=== PATIENT | female | born 1980 | race Hispanic/Latino ===

== ENCOUNTER 2019-04-19 00:39 | Emergency (ER) | payer SELFPAY ==
[2019-04-19 00:48] VITALS: BP 164/110
== END 2019-04-19 03:30 | disposition left against medical advice (07) ==
LOC: ED 00:39
DX: M54.9 Dorsalgia, unspecified (principal); Z53.21 Procedure and treatment not carried out due to patient leaving prior to being seen by health care provider

== ENCOUNTER 2020-01-09 14:46 | Emergency (ER) | payer SELFPAY | END 2020-01-09 15:02 | disposition left against medical advice (07) | LOC: ED 14:46 | DX: I74.9 Embolism and thrombosis of unspecified artery (principal); Z53.21 Procedure and treatment not carried out due to patient leaving prior to being seen by health care provider ==

== ENCOUNTER 2021-06-08 21:44 | Emergency (ER) | payer SELFPAY ==
[2021-06-08 22:00] VITALS: BP 135/95
[2021-06-08] MEDS ORDERED: ASPIRIN 325 MG TAB PO ONE (22:06)
--- NOTE | 2021-06-08 22:37 | XRay Report ---
CHEST 2 VIEWS INDICATION / CLINICAL INFORMATION: CHEST PAIN. COMPARISON: Chest x-ray 05/09/2010 FINDINGS: SUPPORT DEVICES: None. HEART / MEDIASTINUM: No significant abnormality. LUNGS / PLEURA: No significant pulmonary or pleural abnormality. No pneumothorax. ADDITIONAL FINDINGS: No significant additional findings. IMPRESSION: 1. No active cardiopulmonary disease. Signer Name: Vipul Huitron II, MD Signed: 06/08/2021 10:33 PM Workstation Name: [id number]
[2021-06-08 22:53] LABS: Basophils # (Auto) 0.1 K/mm3 (0.0-0.1); Basophils % (Auto) 1.5 % (0.0-1.8); Eosinophils # (Auto) 0.3 K/mm3 (0.0-0.4); Eosinophils % (Auto) 3.2 % (0.0-4.3); Hematocrit 40.9 % (30.3-42.9); Hemoglobin 13.8 gm/dl (10.1-14.3); Lymphocytes # (Auto) 3.1 K/mm3 (1.2-5.4); Lymphocytes % (Auto) 39.3 % (13.4-35.0); Mean Corpuscular HGB Conc 34 % (30-34); Monocytes # (Auto) 0.5 K/mm3 (0.0-0.8); Monocytes % (Auto) 6.8 % (0.0-7.3); Platelet Count 301 K/mm3 (140-440); Red Blood Count 3.71 M/mm3 (3.65-5.03); Red Cell Distribution Width 14.8 % (13.2-15.2)
[2021-06-08 22:54] LABS: Mean Corpuscular Volume 110 fl (79-97)
[2021-06-08 23:10] LABS: Alanine Aminotransferase 55 units/L (7-56); Albumin 4.3 g/dL (3.9-5); Blood Urea Nitrogen 13 mg/dL (7-17); Calcium 9.8 mg/dL (8.4-10.2); Hemolysis Index 16
[2021-06-08 23:12] LABS: BUN/Creatinine Ratio 26
--- NOTE | 2021-06-10 14:20 | Electrocardiograph Report ---
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
== END 2021-06-09 01:00 | disposition left against medical advice (07) ==
LOC: ED 21:44
DX: R07.89 Other chest pain (principal); R42 Dizziness and giddiness; Z53.21 Procedure and treatment not carried out due to patient leaving prior to being seen by health care provider
CPT/HCPCS: 36415; 71046; 80053; 84484; 85025; 93005